=== PATIENT | female | born 1980 | race Caucasian/White ===

== ENCOUNTER 2017-08-05 21:41 | Inpatient (IN) | payer MEDICAID ==
[~2017-08-05] VITALS: Ht 162.6 cm; Wt 67.6 kg
[2017-08-05] MEDS ORDERED: ZOLPIDEM TARTRATE 10 MG TABLET PO PRN (23:00)
[2017-08-05 23:39] VITALS: BP 146/85
[2017-08-05] MEDS ORDERED: INFLUENZA VIRUS VACCINE QVS 2017-18 (3YR+)/PF 60 MCG/0.5 ML SYRINGE IM ONE (23:45)
[2017-08-05] MEDS ORDERED: PNEUMOCOCCAL VACCINE POLYVALENT 0.5 ML VIAL [PPSV23] IM ONE (23:45)
[2017-08-06] MEDS: OLANZapine 10 MG TABLET PO SCH ×2 (00:11→20:12)
[2017-08-06 04:33] VITALS: BP 140/68
[2017-08-06 08:22] LABS: BASOPHILS % (AUTO) 1.6 % (0.0-2.0); HEMATOCRIT 35.7 % (36-46); HEMOGLOBIN 11.9 g/dL (12.0-16.0); LYMPHOCYTES # (AUTO) 2.4 K/uL (1.0-4.8); LYMPHOCYTES % (AUTO) 32.3 % (22.0-44.0); MEAN CORPUSCULAR HEMOGLOBIN 28.2 pg (26.0-34.0); MEAN CORPUSCULAR HGB CONC 33.3 G/dL (31.0-37.0); MEAN CORPUSCULAR VOLUME 85 fL (80-100); MONOCYTES # (AUTO) 0.6 K/uL (0.1-1.0); NEUTROPHILS # (AUTO) 3.7 K/uL (1.8-7.7); NEUTROPHILS % (AUTO) 50.1 % (40.0-70.0); PLATELET COUNT (AUTO) 284 K/uL (150-450); RED BLOOD CELL COUNT(AUTO) 4.23 MIL/uL (4.00-5.20); RED CELL DISTRIBUTION WIDTH 14.6 % (11.5-14.5); WHITE BLOOD COUNT (AUTO) 7.3 K/uL (4.5-11.0)
[2017-08-06 08:26] LABS: HEMOGLOBIN A1C 5.4 % (4.5-6.2)
[2017-08-06 08:30] VITALS: BP 135/73
[2017-08-06 08:31] LABS: ADD UA MICROSCOPIC YES; APPEARANCE,URINE CLOUDY (CLEAR); GLUCOSE, URINE (UA) NEGATIVE (NEGATIVE); KETONES,URINE TRACE mg/dL (NEGATIVE); LEUKOCYTE ESTERASE ,URINE SMALL (NEGATIVE); OCCULT BLOOD,URINE NEGATIVE (NEGATIVE); PH,URINE 5.5 (5.0-8.0); PROTEIN,URINE NEGATIVE (NEGATIVE)
[2017-08-06 08:38] LABS: CALCIUM OXALATE CRYSTALS,UR Moderate /LPF (None Seen); RBC,URINE None Seen /HPF (0-2); SQUAMOUS EPITHELIAL CELL,UR Few /LPF (None Seen)
[2017-08-06 09:04] LABS: ALANINE AMINOTRANSFERASE 26 U/L (12-78); ANION GAP 5 mmol/L (8-16); ASPARTATE AMINOTRANSFERASE 19 U/L (15-37); BILIRUBIN,TOTAL 0.1 mg/dL (0.1-1.0); CALCIUM, TOTAL 8.3 mg/dL (8.8-10.5); CARBON DIOXIDE 29 mmol/L (22-29); CHLORIDE 106 mmol/L (98-107); CREATININE 0.76 mg/dL (0.60-1.30); GLOMERULAR FILTR. RATE CALC > 60 mL/min (>60); POTASSIUM 3.7 mmol/L (3.5-5.1); SODIUM SERUM 140 mmol/L (136-145); TOTAL PROTEIN, SERUM 6.6 g/dL (6.4-8.2); UREA NITROGEN, BLOOD 9 mg/dL (7-18)
[2017-08-06] MEDS: HALOPERIDOL 5 MG TABLET PO PRN (14:26)
[2017-08-06] MEDS: LORazepam 2 MG TABLET PO PRN (14:26)
[2017-08-07 05:15] VITALS: BP 127/68
[2017-08-07 08:26] VITALS: BP 128/78
[2017-08-07 16:26] VITALS: BP 113/65
[2017-08-07] MEDS: OLANZapine 10 MG TABLET PO SCH (20:33)
[2017-08-08 06:19] VITALS: BP 132/61
[2017-08-08 08:31] VITALS: BP 130/73
[2017-08-08 16:12] VITALS: BP 109/68
[2017-08-08] MEDS: LORazepam 2 MG TABLET PO PRN (17:37)
[2017-08-08] MEDS: OLANZapine 10 MG TABLET PO SCH (20:34)
[2017-08-09 06:48] VITALS: BP 119/73
[2017-08-09 08:50] VITALS: BP 112/62
[2017-08-09] MEDS: OLANZapine 5 MG TABLET PO SCH (13:09)
[2017-08-09 16:06] VITALS: BP 101/62
[2017-08-09] MEDS: OLANZapine 10 MG TABLET PO SCH (20:08)
[2017-08-10 06:40] VITALS: BP 108/77
[2017-08-10 08:30] VITALS: BP 106/63
[2017-08-10] MEDS: OLANZapine 5 MG TABLET PO SCH (08:59)
[2017-08-10 09:19] VITALS: BP 106/63
[2017-08-10 16:09] VITALS: BP 111/66
[2017-08-10] MEDS: OLANZapine 10 MG TABLET PO SCH (20:05)
[2017-08-11 07:10] VITALS: BP 110/77
[2017-08-11 08:44] VITALS: BP 105/72
[2017-08-11] MEDS: OLANZapine 5 MG TABLET PO SCH (08:44)
[2017-08-11] MEDS: HALOPERIDOL 5 MG TABLET PO PRN (14:12)
[2017-08-11] MEDS: LORazepam 2 MG TABLET PO PRN (14:12)
[2017-08-11 16:01] VITALS: BP 124/95
[2017-08-11] MEDS: OLANZapine 10 MG TABLET PO SCH (20:11)
[2017-08-12 08:54] VITALS: BP 128/70
[2017-08-12] MEDS: OLANZapine 5 MG TABLET PO SCH (09:11)
[2017-08-12 16:01] VITALS: BP 123/79
[2017-08-12] MEDS: OLANZapine 10 MG TABLET PO SCH (20:17)
[2017-08-13 06:36] VITALS: BP 115/78
[2017-08-13] MEDS: OLANZapine 5 MG TABLET PO SCH (08:19)
[2017-08-13 08:22] VITALS: BP 120/73
[2017-08-13 16:01] VITALS: BP 115/60
[2017-08-13] MEDS: OLANZapine 10 MG TABLET PO SCH (20:20)
[2017-08-14 02:09] VITALS: BP 116/63
[2017-08-14] MEDS: OLANZapine 5 MG TABLET PO SCH (08:35)
[2017-08-14 08:53] VITALS: BP 116/71
[2017-08-14] MEDS ORDERED: OLAN5TAB2 PO (11:39)
[2017-08-14] MEDS ORDERED: OLAN10TA3 PO (11:39)
== END 2017-08-14 14:01 | disposition home or self-care (01) | DRG 753 ==
LOC: B3A 22:00
DX: F31.5 Bipolar disorder, current episode depressed, severe, with psychotic features (principal); R45.851 Suicidal ideations; D64.9 Anemia, unspecified; F12.90 Cannabis use, unspecified, uncomplicated; F15.90 Other stimulant use, unspecified, uncomplicated; Z28.21 Immunization not carried out because of patient refusal; Z59.0 Homelessness; Z91.5 Personal history of self-harm
CPT/HCPCS: 80307; 83036; 84439; 84443; 90471

== ENCOUNTER 2017-11-27 18:02 | Inpatient (IN) | payer MEDICAID ==
[~2017-11-27] VITALS: Ht 167.6 cm; Wt 61.8 kg
[~2017-11-27 18:02] MED LIST: OLAN10TA3 PO; OLAN5TAB2 PO
[2017-11-27 18:59] LABS: BASOPHILS % (AUTO) 0.4 % (0.0-2.0); EOSINOPHILS % (AUTO) 1.3 % (1.0-6.0); HEMATOCRIT 37.6 % (36-46); HEMOGLOBIN 12.4 g/dL (12.0-16.0); LYMPHOCYTES % (AUTO) 8.5 % (22.0-44.0); MEAN CORPUSCULAR HEMOGLOBIN 26.9 pg (26.0-34.0); MEAN CORPUSCULAR HGB CONC 32.9 G/dL (31.0-37.0); MEAN CORPUSCULAR VOLUME 82 fL (80-100); MONOCYTES # (AUTO) 0.4 K/uL (0.1-1.0); MONOCYTES % (AUTO) 3.9 % (2.0-9.0); NEUTROPHILS # (AUTO) 9.9 K/uL (1.8-7.7); PLATELET COUNT (AUTO) 344 K/uL (150-450); RED CELL DISTRIBUTION WIDTH 14.3 % (11.5-14.5)
[2017-11-27 19:02] LABS: NEUTROPHILS % (AUTO) 85.9 % (40.0-70.0)
[2017-11-27 19:11] LABS: ANION GAP 10 mmol/L (8-16); CALCIUM, TOTAL 9.2 mg/dL (8.8-10.5); CARBON DIOXIDE 26 mmol/L (22-29); CHLORIDE 104 mmol/L (98-107); CREATININE 0.92 mg/dL (0.60-1.30); GLOMERULAR FILTR. RATE CALC > 60 mL/min (>60); GLUCOSE,RANDOM 78 mg/dL (70-110); POTASSIUM 4.2 mmol/L (3.5-5.1); SODIUM SERUM 140 mmol/L (136-145); UREA NITROGEN, BLOOD 9 mg/dL (7-18)
[2017-11-27 19:17] LABS: ALANINE AMINOTRANSFERASE 28 U/L (12-78); ALBUMIN 3.7 g/dL (3.4-5.0); ALKALINE PHOSPHATASE 61 U/L (46-116); ASPARTATE AMINOTRANSFERASE 39 U/L (15-37); BILIRUBIN,TOTAL 0.3 mg/dL (0.1-1.0)
[2017-11-27] MEDS ORDERED: OLANZapine 5 MG RAPDIS TABLET PO PRN (19:30)
[2017-11-27] MEDS ORDERED: ZOLPIDEM TARTRATE 10 MG TABLET PO PRN (19:30)
[2017-11-27] MEDS ORDERED: LORazepam 2 MG TABLET PO PRN (19:30)
[2017-11-27] MEDS: OLANZapine 5 MG RAPDIS TABLET PO SCH (20:19)
[2017-11-27 20:37] LABS: AMPHET/METH SCREEN,URINE POSITIVE (NEGATIVE); BARBITURATE SCREEN, URINE NEGATIVE (NEGATIVE); BENZODIAZEPINES SCREEN,URINE NEGATIVE (NEGATIVE); METHADONE SCREEN, URINE NEGATIVE (NEGATIVE); OPIATE SCREEN,URINE NEGATIVE (NEGATIVE)
[2017-11-27 20:42] LABS: PHENCYCLIDINE SCREEN,URINE NEGATIVE (NEGATIVE)
[2017-11-27] MEDS ORDERED: IBUPROFEN 400 MG TABLET PO PRN (21:00)
[2017-11-27] MEDS ORDERED: ACETAMINOPHEN 325 MG TABLET PO PRN (21:00)
[2017-11-27 21:54] LABS: CANNABINOID SCREEN,URINE POSITIVE (NEGATIVE); COCAINE SCREEN,URINE NEGATIVE (NEGATIVE)
[2017-11-27 22:01] VITALS: BP 141/84
[2017-11-27] MEDS ORDERED: PNEUMOCOCCAL VACCINE POLYVALENT 0.5 ML VIAL [PPSV23] IM ONE (22:30)
[2017-11-27] MEDS ORDERED: INFLUENZA VIRUS VACCINE QVS 2017-18 (3YR+)/PF 60 MCG/0.5 ML SYRINGE IM ONE (22:30)
[2017-11-28 06:19] VITALS: BP 140/82
[2017-11-28 08:58] LABS: CHOL/HDL RATIO 2.7 (3.9-5.7); CHOLESTEROL 141 mg/dL (131-200); HCG,QUANTITATIVE < 1 mIU/mL (0-6); HDL CHOLESTEROL 52 mg/dL (40-60); LDL CHOL (CALC.) 78 mg/dL (0-130); THYROID STIMULATING HORMONE 3.44 uIU/mL (0.36-3.74); TRIGLYCERIDES 55 mg/dL (15-150)
[2017-11-28 09:00] VITALS: BP 124/76
[2017-11-28] MEDS ORDERED: ACETAMINOPHEN 325 MG TABLET PO PRN (09:45)
[2017-11-28] MEDS ORDERED: HydrOXYzine PAMOATE 50 MG CAPSULE PO PRN (09:45)
[2017-11-28] MEDS ORDERED: GuaiFENesin/D-METHORPHAN [SUGAR-FREE] 200-20MG/10 ML SYRUP UDCUP PO PRN (09:45)
[2017-11-28] MEDS ORDERED: PROMETHAZINE HCL 25 MG TABLET PO PRN (09:45)
[2017-11-28] MEDS ORDERED: MAG HYDROX/AL HYDROX/SIMETH ES 30 ML SUSPENSION UDCUP PO PRN (09:45)
[2017-11-28] MEDS ORDERED: MAGNESIUM HYDROXIDE SUSPENSION 30 ML UDCUP PO PRN (09:45)
[2017-11-28] MEDS ORDERED: TUBERCULIN, PURIFIED PROTEIN DERIVATIVE 5 TU/0.1 ML SYG ID ONE (09:45)
[2017-11-28] MEDS ORDERED: LOPERAMIDE HCL 2 MG CAPSULE PO PRN (09:45)
[2017-11-28 16:45] VITALS: BP 123/72
[2017-11-28] MEDS: THIAMINE HCL 100 MG TABLET PO SCH (17:09)
[2017-11-28] MEDS: OLANZapine 5 MG RAPDIS TABLET PO SCH (20:39)
[2017-11-29 07:14] VITALS: BP 110/62
[2017-11-29 08:05] VITALS: BP 118/91
[2017-11-29] MEDS: THIAMINE HCL 100 MG TABLET PO SCH ×2 (09:54→17:24)
[2017-11-29] MEDS: MULTIVITAMINS WITH MINERALS, THERAPEUTIC TABLET PO SCH (09:55)
[2017-11-29] MEDS: FOLIC ACID 1 MG TABLET PO SCH (09:55)
[2017-11-29] MEDS: NALTREXONE HCL 50 MG TABLET PO SCH (09:55)
[2017-11-29 16:10] VITALS: BP 129/78
[2017-11-29] MEDS: OLANZapine 10 MG RAPDIS TABLET PO SCH (20:22)
[2017-11-30 07:00] VITALS: BP 128/72
[2017-11-30 08:07] VITALS: BP 117/56
[2017-11-30] MEDS: THIAMINE HCL 100 MG TABLET PO SCH ×2 (08:24→16:07)
[2017-11-30] MEDS: MULTIVITAMINS WITH MINERALS, THERAPEUTIC TABLET PO SCH (08:24)
[2017-11-30] MEDS: FLUoxetine HCL 20 MG CAPSULE PO SCH (08:26)
[2017-11-30] MEDS: FOLIC ACID 1 MG TABLET PO SCH (08:26)
[2017-11-30] MEDS: NALTREXONE HCL 50 MG TABLET PO SCH (08:26)
[2017-11-30] MEDS ORDERED: OLAN10TA22 PO (13:36)
[2017-11-30] MEDS ORDERED: NALT50TA PO (13:36)
[2017-11-30] MEDS ORDERED: FLUO-191 PO (13:36)
[2017-11-30 16:11] VITALS: BP 109/77
[2017-11-30] MEDS: OLANZapine 10 MG RAPDIS TABLET PO SCH (21:04)
[2017-12-01 07:11] VITALS: BP 133/76
[2017-12-01 08:49] VITALS: BP 130/75
[2017-12-01] MEDS: FOLIC ACID 1 MG TABLET PO SCH (08:56)
[2017-12-01] MEDS: THIAMINE HCL 100 MG TABLET PO SCH (08:56)
[2017-12-01] MEDS: NALTREXONE HCL 50 MG TABLET PO SCH (08:56)
[2017-12-01] MEDS: MULTIVITAMINS WITH MINERALS, THERAPEUTIC TABLET PO SCH (08:56)
[2017-12-01] MEDS: FLUoxetine HCL 20 MG CAPSULE PO SCH (08:56)
== END 2017-12-01 14:25 | disposition home or self-care (01) | DRG 750 ==
LOC: EMS 18:09 → B3A 19:30
PROVIDERS: ADMIT Psychiatry & Neurology Psychiatry; ATTEND Psychiatry & Neurology Psychiatry
DX: F25.0 Schizoaffective disorder, bipolar type (principal); Z91.14 Patient's other noncompliance with medication regimen; R45.851 Suicidal ideations; F17.210 Nicotine dependence, cigarettes, uncomplicated; F15.90 Other stimulant use, unspecified, uncomplicated; D72.829 Elevated white blood cell count, unspecified; F10.10 Alcohol abuse, uncomplicated; E73.8 Other lactose intolerance; F41.9 Anxiety disorder, unspecified
CPT/HCPCS: 84443; 99285; G0480

== ENCOUNTER 2017-12-09 11:25 | Inpatient (IN) | payer MEDICAID ==
[~2017-12-09] VITALS: Ht 165.1 cm; Wt 61.2 kg
[~2017-12-09 11:25] MED LIST changes: +FLUO-191 PO; +NALT50TA PO; +OLAN10TA22 PO; -OLAN10TA3 PO; -OLAN5TAB2 PO
[2017-12-09] MEDS ORDERED: DiphenhydrAMINE HCL 50 MG/ML VIAL IM ONE (11:30)
[2017-12-09] MEDS ORDERED: LORazepam 2 MG/ML VIAL IM ONE (11:30)
[2017-12-09] MEDS ORDERED: HALOPERIDOL LACTATE 5 MG/ML VIAL IM ONE (11:30)
[2017-12-09 12:09] LABS: BASOPHILS % (AUTO) 0.9 % (0.0-2.0); EOSINOPHILS % (AUTO) 3.3 % (1.0-6.0); HEMATOCRIT 35.9 % (36-46); HEMOGLOBIN 11.8 g/dL (12.0-16.0); LYMPHOCYTES # (AUTO) 1.2 K/uL (1.0-4.8); LYMPHOCYTES % (AUTO) 13.3 % (22.0-44.0); MEAN CORPUSCULAR HGB CONC 32.8 G/dL (31.0-37.0); MEAN CORPUSCULAR VOLUME 82 fL (80-100); MONOCYTES # (AUTO) 0.5 K/uL (0.1-1.0); NEUTROPHILS # (AUTO) 6.8 K/uL (1.8-7.7); NEUTROPHILS % (AUTO) 76.5 % (40.0-70.0); PLATELET COUNT (AUTO) 338 K/uL (150-450); RED BLOOD CELL COUNT(AUTO) 4.36 MIL/uL (4.00-5.20); RED CELL DISTRIBUTION WIDTH 14.2 % (11.5-14.5)
[2017-12-09 12:15] LABS: ANION GAP 8 mmol/L (8-16); CALCIUM, TOTAL 8.8 mg/dL (8.8-10.5); CARBON DIOXIDE 27 mmol/L (22-29); CHLORIDE 106 mmol/L (98-107); CREATININE 0.75 mg/dL (0.60-1.30); GLOMERULAR FILTR. RATE CALC > 60 mL/min (>60); GLUCOSE,RANDOM 81 mg/dL (70-110); POTASSIUM 3.6 mmol/L (3.5-5.1); SODIUM SERUM 141 mmol/L (136-145); UREA NITROGEN, BLOOD 12 mg/dL (7-18)
[2017-12-09 12:24] LABS: ALANINE AMINOTRANSFERASE 36 U/L (12-78); ALBUMIN 3.5 g/dL (3.4-5.0); ALKALINE PHOSPHATASE 59 U/L (46-116); ASPARTATE AMINOTRANSFERASE 32 U/L (15-37); BILIRUBIN,TOTAL 0.4 mg/dL (0.1-1.0); TOTAL PROTEIN, SERUM 7.4 g/dL (6.4-8.2)
[2017-12-09] MEDS ORDERED: QUEtiapine FUMARATE 100 MG TABLET PO PRN (12:45)
[2017-12-09] MEDS ORDERED: LORazepam 2 MG TABLET PO PRN (12:45)
[2017-12-09] MEDS ORDERED: ZOLPIDEM TARTRATE 10 MG TABLET PO PRN (12:45)
[2017-12-09 13:09] LABS: AMPHET/METH SCREEN,URINE POSITIVE (NEGATIVE); BARBITURATE SCREEN, URINE NEGATIVE (NEGATIVE); BENZODIAZEPINES SCREEN,URINE NEGATIVE (NEGATIVE); CANNABINOID SCREEN,URINE POSITIVE (NEGATIVE); COCAINE SCREEN,URINE NEGATIVE (NEGATIVE); METHADONE SCREEN, URINE NEGATIVE (NEGATIVE); OPIATE SCREEN,URINE NEGATIVE (NEGATIVE)
[2017-12-09 13:14] LABS: PHENCYCLIDINE SCREEN,URINE NEGATIVE (NEGATIVE)
[2017-12-09 14:48] VITALS: BP 121/74
[2017-12-09 18:28] VITALS: BP 119/72
[2017-12-09] MEDS: OLANZapine 10 MG RAPDIS TABLET PO SCH (21:00)
[2017-12-10 08:15] VITALS: BP 145/79
[2017-12-10] MEDS: FLUoxetine HCL 20 MG CAPSULE PO SCH (08:47)
[2017-12-10] MEDS ORDERED: IBUPROFEN 400 MG TABLET PO PRN (16:15)
[2017-12-10] MEDS ORDERED: ACETAMINOPHEN 325 MG TABLET PO PRN (16:15)
[2017-12-10] MEDS: OLANZapine 10 MG RAPDIS TABLET PO SCH (20:23)
[2017-12-11 07:19] LABS: CHOL/HDL RATIO 2.7 (3.9-5.7); THYROID STIMULATING HORMONE 5.71 uIU/mL (0.36-3.74)
[2017-12-11 07:56] LABS: HEMOGLOBIN A1C 5.6 % (4.5-6.2)
[2017-12-11] MEDS: FLUoxetine HCL 20 MG CAPSULE PO SCH (08:59)
[2017-12-11 09:31] VITALS: BP 116/81
[2017-12-11] MEDS: OLANZapine 10 MG RAPDIS TABLET PO SCH (20:28)
[2017-12-12 00:51] VITALS: BP 101/58
[2017-12-12 08:00] VITALS: BP 123/79
[2017-12-12] MEDS: FLUoxetine HCL 20 MG CAPSULE PO SCH (11:12)
[2017-12-12 19:08] VITALS: BP 111/68
[2017-12-12] MEDS: OLANZapine 10 MG RAPDIS TABLET PO SCH (22:08)
[2017-12-13 09:31] VITALS: BP 130/73
[2017-12-13] MEDS: FLUoxetine HCL 20 MG CAPSULE PO SCH (09:34)
[2017-12-13 17:01] VITALS: BP 142/84
[2017-12-13] MEDS: OLANZapine 10 MG RAPDIS TABLET PO SCH (21:05)
[2017-12-14 08:00] VITALS: BP 111/65
[2017-12-14] MEDS ORDERED: FLUO-191 PO (08:20)
[2017-12-14] MEDS ORDERED: OLAN10TA6 PO (08:20)
[2017-12-14] MEDS: FLUoxetine HCL 20 MG CAPSULE PO SCH (09:22)
[2017-12-14 17:00] VITALS: BP 121/72
[2017-12-14] MEDS: OLANZapine 10 MG RAPDIS TABLET PO SCH (21:23)
[2017-12-15] MEDS ORDERED: LEVOTHYROXINE SODIUM 75 MCG TABLET PO SCH (07:00)
[2017-12-15 08:00] VITALS: BP 126/63
[2017-12-15] MEDS: FLUoxetine HCL 20 MG CAPSULE PO SCH (09:34)
[2017-12-15] MEDS ORDERED: LEVO75 PO (10:00)
== END 2017-12-15 10:45 | disposition home or self-care (01) | DRG 750 ==
LOC: EMS 11:25 → 3EC 13:48 → 3EI 12-12 16:30
PROVIDERS: ADMIT Psychiatry & Neurology Psychiatry; ATTEND Psychiatry & Neurology Psychiatry
DX: F25.1 Schizoaffective disorder, depressive type (principal); R45.851 Suicidal ideations; F15.20 Other stimulant dependence, uncomplicated; E03.9 Hypothyroidism, unspecified; D64.9 Anemia, unspecified; F41.9 Anxiety disorder, unspecified; F10.10 Alcohol abuse, uncomplicated; F12.20 Cannabis dependence, uncomplicated; Z91.14 Patient's other noncompliance with medication regimen; Z59.0 Homelessness; Z79.899 Other long term (current) drug therapy; Z88.8 Allergy status to other drugs, medicaments and biological substances; Z86.711 Personal history of pulmonary embolism; Z87.891 Personal history of nicotine dependence; Z71.41 Alcohol abuse counseling and surveillance of alcoholic; Z71.51 Drug abuse counseling and surveillance of drug abuser
CPT/HCPCS: 83036; 84439; 84443; 87081; 96372; 99285; G0480; J1200; J1630; J2060